=== PATIENT | female | born 1955 | race Caucasian/White ===

== ENCOUNTER → 2025-03-02 06:32 | Outpatient (REF) | payer BC, SELFPAY | LOC: MRI 06:32 | PROVIDERS: ATTENDING PHYSICIAN Physician Assistant Surgical; FAMILY PHYSICIAN Physician Assistant Medical | DX: M54.12 Radiculopathy, cervical region (principal); M54.2 Cervicalgia; M54.9 Dorsalgia, unspecified; M54.16 Radiculopathy, lumbar region; M47.816 Spondylosis without myelopathy or radiculopathy, lumbar region | CPT/HCPCS: 72141; 72148 ==